=== PATIENT | female | born 1960 | race Caucasian/White ===

== ENCOUNTER 2016-09-14 20:19 | Emergency (ER) | payer OTHER ==
[~2016-09-14] VITALS: Ht 165.1 cm; Wt 56.4 kg
[~2016-09-14 20:19] MED LIST: ASCO-294 PO; BUTA1CAP40 PO; CALC-78 PO; ESTR1TAB24 PO; IBUP200C11 PO; LIP40 PO; MULT-1018 PO; ZOF8 PO
[2016-09-14 20:36] VITALS: BP 129/80; PULSE 68; RESP 16; O2SAT 100
--- NOTE | 2016-09-14 22:41 | ED.REPORT ---
HPI-Headache Date of Service September 14, 2016 ED Provider: Sly Cleveland MD Nursing Notes Stated Complaint: ICE PICK HEADACHE Chief Complaint: Headache Nursing Notes Reviewed: Yes Allergies: Coded Allergies: flecainide (Verified Allergy, Severe, RASH, 10/29/15) Sulfa (Sulfonamide Antibiotics) (Verified Allergy, Unknown, UNKNOWN, ) meperidine (Verified Allergy, Unknown, UNKNOWN, 10/29/15) prochlorperazine (Verified Allergy, Unknown, UNKNOWN, 10/29/15) propoxyphene (Verified Allergy, Unknown, UNKNOWN, 10/29/15) Scheduled Ascorbate Calcium (Vitamin C) 500 Mg Tablet 500 MG PO DAILY Atorvastatin (Lipitor) 40 Mg Tablet 40 MG PO DAILY Calcium Carbonate/Vitamin D3 (Calcium 500 + Vit D Caplet) 1 Each Tablet 1 EACH PO DAILY Estradiol (Estradiol) 1 Mg Tablet 0.5 MG PO DAILY Multivitamin (Multi Vitamin Daily) 1 Each Tablet 1 EACH PO DAILY Scheduled PRN Butalbital/Acetamin/Caff/Cod 17-860-38-30 mg (Fioricet/Cod 92-968-65-30 mg) 1 Each Capsule 1-2 CAPSULE PO Q4H PRN PRN MIGRAINE Ibuprofen (Advil) 200 Mg Capsule 200 MG PO Q6H PRN PRN PRN Ondansetron (Zofran) 8 Mg Tablet 8 MG PO Q8H PRN PRN For Nausea General Time Seen by MD: 22:39 Past Medical History Past Medical History Notes: Neurologist: Dr. Foss PCP: Dr. Padron, [facility] Past Medical History Vasovagal syncopem (passes out 1 or 2x/month), pacemaker, migraines, Fibromyalgia vs. Lupus Past Surgical History right knee surgery Reports: Appendectomy, Hysterectomy Smoking History Never Smoker Social History Alcohol Use: Denies alcohol use Drug Use: Denies drug use Ambulatory Status Independent Physical Exam Initial Vital Signs Vital Signs (First) Date Time Temp Pulse Resp B/P Pulse Ox O2 Delivery O2 Flow Rate FiO2 09/14/16 20:36 36.1 68 16 129/80 100 Discharge & Departure Referrals: OTHER,PHYSICIAN (PCP) Sly Cleveland MD September 14, 2016 22:41
== END 2016-09-14 23:05 | disposition left against medical advice (07) ==
LOC: SED 20:19
DX: R51 Headache (principal); Z53.21 Procedure and treatment not carried out due to patient leaving prior to being seen by health care provider

== ENCOUNTER 2016-09-16 15:28 | Day surgery (SDC) | payer OTHER ==
[~2016-09-16] VITALS: Ht 165.1 cm; Wt 57.0 kg
[~2016-09-16 15:28] MED LIST changes: +0.9% Sodium Chloride 500 ML IV ONE; +MetoCLOpramide 5 mg/mL 2 mL Inj IVPUSH ONE
[2016-09-16 16:19] VITALS: BP 136/67; PULSE 75; RESP 18; O2SAT 99
[2016-09-16] MEDS ORDERED: PROM25SU46 PO (16:19)
[2016-09-16] MEDS ORDERED: HYDR2TAB27 PO (16:19)
[2016-09-16] MEDS ORDERED: KETO10TA PO (16:19)
[2016-09-16 18:56] VITALS: BP 109/65; PULSE 76; RESP 18; O2SAT 99
--- NOTE | 2016-09-16 18:57 | NUR ---
Migraine Pt arrived reporting ice pick stabbing pain at the left side of her head above her ear. Pt pain is 9/10 Migraine cocktail administered as ordered, pt pain at 0/10 at discharge. VSS throughout, denies ADR. Daughter transporting pt home via personal vehicle.
== END 2016-09-16 23:59 | disposition home or self-care (01) ==
LOC: MOCO 15:28
PROVIDERS: ATTEND Psychiatry & Neurology Neurology
DX: G43.909 Migraine, unspecified, not intractable, without status migrainosus (principal)
CPT/HCPCS: 96365; 96366; 96375; J1200; J1885; J2765; J7040